=== PATIENT | male | born 1985 | race Caucasian/White ===

== ENCOUNTER 2018-12-02 16:08 | Emergency (ER) | payer OTHER ==
[~2018-12-02] VITALS: Ht 185.4 cm; Wt 93.9 kg
[2018-12-02] MEDS ORDERED: KETOROLAC 60 MG/2 ML VIAL. IM ONE ×2 (16:32→16:45)
[2018-12-02] MEDS ORDERED: DEXAMETHASONE SOD PHOS 10 MG/ML VIAL ONE (16:33)
[2018-12-02] MEDS ORDERED: ORPHENADRINE CITRATE 60 MG/2 ML VIAL. ONE (16:33)
[2018-12-02] MEDS ORDERED: OXYC1TAB19 PO (16:40)
[2018-12-02] MEDS ORDERED: ORPH-16 PO (16:40)
[2018-12-02] MEDS ORDERED: DICL50TA4 PO (16:40)
--- NOTE | 2018-12-02 16:40 | PHYS DOC ---
Past History Past Medical History: Glaucoma Additional Past Surgical Histo: eye surgery x3; implant left eye Alcohol Use: Occasionally Drug Use: None Adult General Chief Complaint Chief Complaint: BACK PAIN OR INJURY HPI HPI Patient is a 32-year-old male who presents with complaint of right lower back pain that started yesterday. Patient indicates that he was bending over to picker tender his child and felt something go in his back. He states that he had taken some ibuprofen and other [id number] medication and had some relief but had difficulty sleeping last night due to the pain. He states that throughout today, the pain has gotten worse. He states that initially he had some pain that radiated down into his right buttock but today he has no radiation. He denies any now or bladder incontinence. Patient rates pain as severe and states the pain is worsened with movement.[] Review of Systems Review of Systems Constitutional: Denies fever or chills [] Respiratory: Denies cough or shortness of breath [] Cardiovascular: No additional information not addressed in HPI [] GI: Denies abdominal pain, nausea, vomiting or diarrhea [] : Denies dysuria or hematuria [] Musculoskeletal: Complains of lower back pain [] Neurologic: Denies headache, focal weakness or sensory changes [] Current Medications Current Medications Current Medications Medications (Trade) Dose Ordered Sig/[facility] Start Time Stop Time Status Last Admin Dose Admin Dexamethasone Sodium Phosphate (Decadron) 10 mg 1X ONCE 12/02/18 16:30 12/02/18 16:31 UNV Ketorolac Tromethamine (Toradol Im) 60 mg 1X ONCE 12/02/18 16:45 12/02/18 16:46 Orphenadrine Citrate (Norflex) 60 mg 1X ONCE 12/02/18 16:45 12/02/18 16:46 Oxycodone/ Acetaminophen (Percocet 10/325) 1 tab 1X ONCE 12/02/18 16:45 12/02/18 16:46 Allergies Allergies Allergies Coded Allergies Type Severity Reaction Last Updated Verified No Known Drug Allergies 12/02/18 No Physical Exam Physical Exam Constitutional: Well developed, well nourished, no acute distress, non-toxic appearance. [] Cardiovascular: Regular rate and rhythm[] Lungs & Thorax: Bilateral breath sounds clear to auscultation [] Skin: Warm, dry, no erythema, no rash. [] Back: Examination of lower back demonstrates palpable spasm with moderate tend erness to palpation in the lumbar paraspinal musculature on the right. [] Extremities: No tenderness, no cyanosis, no clubbing, ROM intact, no edema. [] Neurologic: Alert and oriented X 3, no focal deficits noted. [] Current Patient Data Vital Signs Vital Signs Date Time Temp Pulse Resp B/P (MAP) Pulse Ox O2 Delivery O2 Flow Rate FiO2 12/02/18 16:21 97.9 71 18 98 Room Air EKG EKG [] Radiology/Procedures Radiology/Procedures [] Course & Med Decision Making Course & Med Decision Making Pertinent Labs and Imaging studies reviewed. (See chart for details) [] Dragon Disclaimer Dragon Disclaimer This electronic medical record was generated, in whole or in part, using a voice recognition dictation system. Departure Departure: Impression: Primary Impression: Acute lumbar myofascial strain Disposition: HOME, SELF-CARE Condition: STABLE Referrals: PCP,UNKNOWN (PCP) Patient Instructions: Lumbosacral Strain Scripts Diclofenac Sodium (DICLOFENAC SODIUM) 50 Mg Tablet.dr 1 TAB PO BID PRN for PAIN, #20 TAB Prov: STEPHANIE HERNANDEZ Jr. DO 12/02/18 Orphenadrine Citrate (ORPHENADRINE CITRATE) 100 Mg Tablet.er 1 TAB PO BID PRN for MUSCLE SPASMS, #14 TAB Prov: STEPHANIE HERNANDEZ Jr. DO 12/02/18 Oxycodone Hcl/Acetaminophen (PERCOCET 7.5-325 MG TABLET ) 1 Each Tablet 1 TAB PO Q6HRS PRN for PAIN MDD 3 Tablet(s), #15 TAB 0 Refills Prov: STEPHANIE HERNANDEZ Jr. DO 12/02/18 Problem Qualifiers Primary Impression: Acute lumbar myofascial strain Encounter type: initial encounter Qualified Codes: S39.012A - Strain of muscle, fascia and tendon of lower back, initial encounter STEPHANIE HERNANDEZ Jr., DO Dec 02, 2018 16:40
[2018-12-02] MEDS ORDERED: ORPHENADRINE CITRATE 60 MG/2 ML VIAL. IM ONE (16:45)
[2018-12-02] MEDS ORDERED: DEXAMETHASONE SOD PHOS 10 MG/ML VIAL IM ONE (16:45)
[2018-12-02] MEDS ORDERED: oxyCODONE/APAP 10/325 1 TAB TABLET PO ONE (16:45)
[2018-12-02 17:24] VITALS: BP 118/73
== END 2018-12-02 17:34 | disposition home or self-care (01) ==
LOC: ER 16:08
DX: S39.012A Strain of muscle, fascia and tendon of lower back, initial encounter (principal); X50.9XXA Other and unspecified overexertion or strenuous movements or postures, initial encounter; Y93.89 Activity, other specified; Y92.89 Other specified places as the place of occurrence of the external cause; Y99.8 Other external cause status
CPT/HCPCS: 96372; 99284; J1100; J1885; J2360